=== PATIENT | female | born 2000 | race Caucasian/White ===

== ENCOUNTER 2022-11-04 10:57 | Inpatient (IN) | payer BC, MEDICAID ==
[~2022-11-04] VITALS: Ht 165.1 cm; Wt 102.7 kg
[2022-11-06] VITALS (27 sets, daily range): BP systolic 94–129; BP diastolic 51–73; PULSE 75–108; TEMP 97.9–98.7
--- NOTE | 2022-11-06 06:35 | NUR ---
0635 - PATIENT AMBULATORY TO LR5 ACCOMPANIED BY SPOUSE. PATIENT ORIENTED TO ROOM. PATIENT CHANGES INTO GOWN. 0649 - PATIENT ON MONITOR. PATIENT REPORTS TO LABOR AND DELIVERY FOR INDUCTION OF LABOR. PATIENT DENIES CONTRACTIONS, LEAKING OF FLUID, OR BLOODY SHOW. PATIENT REPORTS GOOD MOVEMENT. 0725 - IV PLACED IN RIGHT FOREARM. LABS DRAWN ORDERED. LR INITIATED ORDERED. 0730 - SVE PERFORMED BY CHELSIE WU. /-3. VERTEX. 0732 - CONSENTS REVIEWED AND SIGNED. 0735 - PITOCIN DRIP INITIATED AT 2MU/MIN ORDERED. PATIENT REPOSITIONED. CALL LIGHT IN REACH. CARE ONGOING.
[2022-11-06] MEDS ORDERED: PRENATAL TABLET PO (06:55)
[2022-11-06 08:13] LABS: BASO % 0.4 % (0.0-2.0); EOS # 0.1 K/mm3 (0.0-0.7); GRAN # 4.5 K/mm3 (1.4-6.5); GRAN % 61.5 % (42.2-75.2); HEMOGLOBIN 11.6 g/dl (12.5-16.0); LYMPH # 1.9 K/mm3 (1.2-3.4); LYMPH % 26.1 % (20.0-51.0); MEAN CELL VOLUME 86 fl (80.0-100.0); MEAN CORPUSCULAR HEMOGLOBIN 30 pg (27-31); MEAN CORPUSCULAR HGB CONC 35 g/dl (33.0-37.0); MEAN PLATELET VOLUME 10.7 fl (7.4-10.4); MONO # 0.8 K/mm3 (0.1-0.6); MONO % 10.4 % (1.7-9.3); PLATELET COUNT 125 K/mm3 (130-400); RED BLOOD COUNT 3.89 M/mm3 (4.10-5.30); REDCELL DISTRIBUTION WIDTH-CV 12.6 % (11.5-14.5)
[2022-11-06 08:14] LABS: HEMATOCRIT 33.3 % (37.0-47.0)
--- NOTE | 2022-11-06 09:20 | NUR ---
0920 - MD SARAVANAN AT BEDSIDE. PLAN OF CARE REVIEWED. PATIENT AGREEABLE TO PLAN. 0922 - SVE PERFORMED BY . . 0923 - AROM PERFORMED BY . CLEAR FLUID NOTED. PERICARE PERFORMED. PATIENT REPOSITIONED. CARE ONGOING.
--- NOTE | 2022-11-06 10:00 | NUR ---
0946 - PATIENT REQUESTED EPIDURAL. EDUCATION DEAN NOTIFIED. LR BOLUS INITIATED. 0955 - EDUCATION DEAN AT BEDSIDE. TIMEOUT PERFORMED. PATIENT POSITIONED SITTING UPRIGHT AT EDGE OF BED. FHR AND TOCO TRACING POORLY RELATED TO MATERNAL POSITION FOR PROCEDURE. 1004 - SINGLE SHOT GIVEN PER EDUCATION DEAN. 1009 - PATIENT REPOSITIONED WEDGED LEFT. TOCO TRACING AND FHR MONITOR ADJUSTED. CARE ONGOING.
--- NOTE | 2022-11-06 10:30 | NUR ---
1015 - TOCO TRACING INDISCERNIBLE DUE TO MATERNAL POSITION. PATIENT REPOSITIONED. TOCO ADJUSTED. CARE ONGOING.
--- NOTE | 2022-11-06 10:45 | NUR ---
1045 - TOCO TRACING INDISCERNIBLE DUE TO MATERNAL POSITION. PATIENT REPOSITIONED. TOCO ADJUSTED. CARE ONGOING.
--- NOTE | 2022-11-06 11:00 | NUR ---
1100 - TOCO TRACING INDISCERNIBLE DUE TO MATERNAL POSITION. TOCO ADJUSTED. CARE ONGOING.
--- NOTE | 2022-11-06 11:15 | NUR ---
1100 - VARIABLE DECEL NOTED. FHR RETURNS TO BASELINE. 1104 - PATIENT REPOSITIONED TO SUPINE FOR DEL ANGEL PLACEMENT. PATIENT TOLERATED PLACEMENT WELL. SVE COMPLETED BY CHELSIE WU. /+1. PERICARE PERFORMED. 1106 - DECEL NOTED AGAIN. PATIENT POSITIONED LEFT LATERAL. 1107 - DECEL CONTINUES. PATIENT POSITIONED RIGHT LATERAL. LR BOLUS INITIATED. 1108 - EFM TRACING INDISCERNIBLE. PATIENT POSITIONED KNEES TO CHEST. 1110 - SVE COMPLETED BY CHELSIE PEREZ. /+2. 1111 - MD SARAVANAN CALLED AND REQUESTED TO BEDSIDE FOR DELIVERY. 1116 - MD SARAVANAN ARRIVES FOR DELIVERY. PUSHING INSTRUCTIONS REVIEWED WITH PATIENT. 1117 - PATIENT BEGINS PUSHING WITH CONTRACTIONS. GOOD MATERNAL EFFORT. 1125 - PATIENT CONTINUES PUSHING WITH CONTRACTIONS. SPONTANEOUS VAGINAL DELIVERY OF INFANT. HEAD FOLLOWED BY BODY. TO PATIENTS CHEST. DRIED AND STIMULATED. CORD CLAMPED AND CUT. CARE OF INFANT ASSUMED BY CHELSIE LUCIO FOR NURSERY. 1128 - SPONTANEOUS DELIVERY OF INTACT PLACENTA. 1130 - PERINEUM INTACT PER MD. FUNDAL MASSAGE PERFORMED BY RN. PEGGY CARE PERFORMED. BED PAD CHANGED. CARE ONGOING.
--- NOTE | 2022-11-06 14:35 | NUR ---
1435 - PATIENT AMBULATORY TO BATHROOM ACCOMPANIED BY RN. PATIENT VOIDS. PERICARE PERFORMED. NEW GOWN, MESH UNDERWEAR AND PAD ON. PATIENT AMUBLATES TO ROOM 216 ACCOMPANIED BY SPOUSE AND RN. PATIENT ORIENTED TO ROOM. CALL LIGHT IN REACH. CARE ONGOING.
[2022-11-07 04:11] VITALS: BP 133/70; PULSE 99; TEMP 98
[2022-11-07 08:32] VITALS: BP 140/86; PULSE 98; TEMP 97
[2022-11-07] MEDS ORDERED: IBU800 M1 PO (09:08)
--- NOTE | 2022-11-07 10:39 | NUR ---
Initial visit; Patient thanked Line Production Cook for offering God's blessings for the of her son and for offering 'Special Blessings' for her son. Line Production Cook thanked patient for choosing [facility].
--- NOTE | 2022-11-07 15:45 | NUR ---
THIS RN DISCUSSES DISCHARGE INFORATION WITH PT. PT VERBALIZES UNDERSTANDING.
== END 2022-11-07 16:13 | disposition home or self-care (01) | DRG 806 ==
LOC: LDR 11-06 06:30 → OB 11-06 10:56
PROVIDERS: ADMIT Student in an Organized Health Care Education/Training Program
PROC: 10E0XZZ Delivery of Products of Conception, External Approach (ICD-10-PCS; principal; 2022-11-06)
PROC: 3E033VJ Introduction of Other Hormone into Peripheral Vein, Percutaneous Approach (ICD-10-PCS; 2022-11-06)
DX: O99.824 Streptococcus B carrier state complicating childbirth (principal); D69.3 Immune thrombocytopenic purpura; Z37.0 Single live birth; O99.12 Other diseases of the blood and blood-forming organs and certain disorders involving the immune mechanism complicating childbirth; O99.344 Other mental disorders complicating childbirth; F32.A Depression, unspecified; F41.9 Anxiety disorder, unspecified; O99.214 Obesity complicating childbirth; O76 Abnormality in fetal heart rate and rhythm complicating labor and delivery; Z3A.39 39 weeks gestation of pregnancy
CPT/HCPCS: J2540; J2590; J7120

== ENCOUNTER 2024-01-14 21:27 | Emergency (ER) | payer MEDICAID ==
[~2024-01-14] VITALS: Ht 165.1 cm; Wt 81.8 kg
[~2024-01-14 21:27] MED LIST: IBU800 M1 PO; PRENATAL TABLET PO
[2024-01-14] MEDS ORDERED: Ciprofloxacin 500 MG TAB PO ONE (22:00)
[2024-01-14] MEDS ORDERED: CIPRO 500MG TA500 MG PO (22:15)
[2024-01-14] MEDS ORDERED: NORCO 325 MG-51 TAB PO (22:15)
[2024-01-14 22:32] VITALS: BP 121/80; PULSE 79; TEMP 98
== END 2024-01-14 22:30 | disposition home or self-care (01) ==
LOC: COL.ER 21:27
DX: S91.332A Puncture wound without foreign body, left foot, initial encounter (principal); Z23 Encounter for immunization; W45.0XXA Nail entering through skin, initial encounter